=== PATIENT | female | born 1985 | race Caucasian/White ===

== ENCOUNTER → 2016-09-13 | Outpatient (REF) | payer MEDICARE, MEDICAID ==
[2016-09-13 12:03] LABS: BASO # 0.1 K/mm3 (0.0-0.2); BASO % 0.9 % (0.0-1.0); EOS # 0.6 K/mm3 (0.0-0.50); LYMPH % 26.1 % (24.0-44.0); MEAN CORPUSCULAR HGB CONC 31.9 g/dl (32.0-36.5); MEAN CORPUSCULAR VOLUME 90.9 fl (80.0-96.0); MONO # 0.6 K/mm3 (0.0-0.8); NEUTROPHILS # 6.4 K/mm3 (1.8-7.7); NEUTROPHILS % 59.7 % (36.0-66.0); RED CELL DISTRIBUTION WIDTH 13.3 % (11.5-14.5); WHITE BLOOD COUNT 10.8 K/mm3 (4.0-10.0)
[2016-09-13 12:22] LABS: ALBUMIN 3.9 GM/DL (3.2-5.2); ALBUMIN/GLOBULIN RATIO 1.18 (1.00-1.93); ALKALINE PHOSPHATASE 71 U/L (45-117); ALT/SGPT 19 U/L (12-78); ANION GAP 9 MEQ/L (8-16); AST/SGOT 11 U/L (15-37); BILIRUBIN,TOTAL 0.3 MG/DL (0.2-1.0); BLOOD UREA NITROGEN 9 MG/DL (7-18); CALCIUM LEVEL 9.2 MG/DL (8.5-10.1); CARBON DIOXIDE LEVEL 25 MEQ/L (21-32); CHLORIDE LEVEL 105 MEQ/L (98-107); CHOLESTEROL LEVEL 194 MG/DL (<200); CREATININE FOR GFR 0.68 MG/DL (0.55-1.02); GLOMERULAR FILTRATION RATE > 60.0 (>60); GLUCOSE, FASTING 108 MG/DL (70-105); POTASSIUM SERUM 4.6 MEQ/L (3.5-5.1); SODIUM LEVEL 139 MEQ/L (136-145); THYROXINE (T4) 9.2 UG/DL (4.5-12.0); TOTAL PROTEIN 7.2 GM/DL (6.4-8.2); TRIGLYCERIDES LEVEL 213 MG/DL (<150)
== END ==
LOC: M LABDRAW1 11:46
PROVIDERS: ATTEND Physician Assistant
DX: E03.9 Hypothyroidism, unspecified (principal); E55.9 Vitamin D deficiency, unspecified; M79.7 Fibromyalgia; E78.2 Mixed hyperlipidemia

== ENCOUNTER → 2016-11-07 | Outpatient (REF) | payer MEDICARE, MEDICAID, OTHER ==
[2016-11-07 12:13] LABS: ALBUMIN 3.8 GM/DL (3.2-5.2); ALBUMIN/GLOBULIN RATIO 1.12 (1.00-1.93); ALKALINE PHOSPHATASE 77 U/L (45-117); ALT/SGPT 20 U/L (12-78); ANION GAP 8 MEQ/L (8-16); AST/SGOT 9 U/L (15-37); BILIRUBIN,TOTAL 0.2 MG/DL (0.2-1.0); BLOOD UREA NITROGEN 15 MG/DL (7-18); CALCIUM LEVEL 9.5 MG/DL (8.5-10.1); CARBON DIOXIDE LEVEL 27 MEQ/L (21-32); CHLORIDE LEVEL 103 MEQ/L (98-107); CHOLESTEROL LEVEL 190 MG/DL (<200); CREATININE FOR GFR 0.63 MG/DL (0.55-1.02); GLOMERULAR FILTRATION RATE > 60.0 (>60); GLUCOSE, FASTING 93 MG/DL (70-105); POTASSIUM SERUM 4.6 MEQ/L (3.5-5.1); SODIUM LEVEL 138 MEQ/L (136-145); TOTAL PROTEIN 7.2 GM/DL (6.4-8.2); TRIGLYCERIDES LEVEL 194 MG/DL (<150)
[2016-11-07 12:33] LABS: BASO # 0.1 K/mm3 (0.0-0.2); BASO % 0.8 % (0.0-1.0); EOS # 0.6 K/mm3 (0.0-0.50); EOS % 5.3 % (0.0-3.0); LYMPH # 2.7 K/mm3 (1.5-4.5); LYMPH % 25.3 % (24.0-44.0); MEAN CORPUSCULAR HEMOGLOBIN 28.8 pg (27.0-33.0); MEAN CORPUSCULAR HGB CONC 31.7 g/dl (32.0-36.5); MONO # 0.7 K/mm3 (0.0-0.8); MONO % 6.4 % (0.0-5.0); NEUTROPHILS # 6.4 K/mm3 (1.8-7.7); NEUTROPHILS % 60.6 % (36.0-66.0); RED CELL DISTRIBUTION WIDTH 13.2 % (11.5-14.5); WHITE BLOOD COUNT 10.5 K/mm3 (4.0-10.0)
== END ==
LOC: M LABDRAW1 11:29
PROVIDERS: ATTEND Physician Assistant Medical
DX: E78.2 Mixed hyperlipidemia (principal); E03.9 Hypothyroidism, unspecified; E55.9 Vitamin D deficiency, unspecified; Z51.81 Encounter for therapeutic drug level monitoring; Z79.899 Other long term (current) drug therapy

== ENCOUNTER → 2016-11-07 | Outpatient (REF) | payer MEDICARE, MEDICAID, OTHER ==
[2016-11-07 12:15] LABS: BLOOD UREA NITROGEN 15 MG/DL (7-18); CREATININE FOR GFR 0.65 MG/DL (0.55-1.02); GLOMERULAR FILTRATION RATE > 60.0 (>60)
== END ==
LOC: M LABDRAW1 11:27
PROVIDERS: ATTEND Psychiatry & Neurology Psychiatry
DX: Z51.81 Encounter for therapeutic drug level monitoring (principal); Z79.899 Other long term (current) drug therapy

== ENCOUNTER → 2017-02-13 | Outpatient (REF) | payer MEDICARE, MEDICAID ==
[2017-02-13 12:22] LABS: ALBUMIN 3.7 GM/DL (3.2-5.2); ALBUMIN/GLOBULIN RATIO 1.09 (1.00-1.93); ALKALINE PHOSPHATASE 80 U/L (45-117); ALT/SGPT 20 U/L (12-78); ANION GAP 8 MEQ/L (8-16); AST/SGOT 13 U/L (15-37); BILIRUBIN,TOTAL 0.3 MG/DL (0.2-1.0); BLOOD UREA NITROGEN 13 MG/DL (7-18); CARBON DIOXIDE LEVEL 26 MEQ/L (21-32); CHLORIDE LEVEL 104 MEQ/L (98-107); CHOLESTEROL LEVEL 205 MG/DL (<200); CREATININE FOR GFR 0.56 MG/DL (0.55-1.02); GLOMERULAR FILTRATION RATE > 60.0 (>60); GLUCOSE, FASTING 84 MG/DL (70-105); POTASSIUM SERUM 4.4 MEQ/L (3.5-5.1); SODIUM LEVEL 138 MEQ/L (136-145); TOTAL PROTEIN 7.1 GM/DL (6.4-8.2); TRIGLYCERIDES LEVEL 199 MG/DL (<150)
== END ==
LOC: M LABDRAW1 10:15
PROVIDERS: ATTEND Physician Assistant Medical
DX: E78.2 Mixed hyperlipidemia (principal); E03.9 Hypothyroidism, unspecified; E55.9 Vitamin D deficiency, unspecified; Z51.81 Encounter for therapeutic drug level monitoring; Z79.899 Other long term (current) drug therapy

== ENCOUNTER → 2017-02-13 | Outpatient (REF) | payer MEDICARE, MEDICAID, OTHER ==
[2017-02-13 12:21] LABS: BLOOD UREA NITROGEN 13 MG/DL (7-18); CREATININE FOR GFR 0.59 MG/DL (0.55-1.02); GLOMERULAR FILTRATION RATE > 60.0 (>60)
[2017-02-13 12:25] LABS: LITHIUM LEVEL 0.79 MEQ/L (0.60-1.20)
== END ==
LOC: M LABDRAW1 10:19
PROVIDERS: ATTEND Psychiatry & Neurology Psychiatry
DX: Z51.81 Encounter for therapeutic drug level monitoring (principal); Z79.899 Other long term (current) drug therapy

== ENCOUNTER → 2017-06-19 | Outpatient (REF) | payer MEDICARE, MEDICAID, OTHER ==
[2017-06-19 12:05] LABS: BASO # 0.1 10^3/uL (0.0-0.2); BASO % 0.7 % (0.0-1.0); EOS # 0.6 10^3/uL (0.0-0.50); EOS % 5.1 % (0.0-3.0); IMMATURE GRANULOCYTE % 0.7 % (0-0); LYMPH # 3.1 10^3/uL (1.5-4.5); LYMPH % 28.1 % (24.0-44.0); MEAN CORPUSCULAR HEMOGLOBIN 29.3 pg (27.0-33.0); MEAN CORPUSCULAR HGB CONC 32.9 g/dl (32.0-36.5); MEAN CORPUSCULAR VOLUME 89.1 fl (80.0-96.0); MONO # 0.6 10^3/uL (0.0-0.8); MONO % 5.6 % (0.0-5.0); NEUTROPHILS # 6.6 10^3/uL (1.8-7.7); NEUTROPHILS % 59.8 % (36.0-66.0); PLATELET COUNT, AUTOMATED 449 10^3/uL (150-450); RED CELL DISTRIBUTION WIDTH 13.7 % (11.5-14.5); WHITE BLOOD COUNT 11.1 10^3/uL (4.0-10.0)
== END ==
LOC: M LABDRAW1 10:32
PROVIDERS: ATTEND Physician Assistant Medical
DX: E78.2 Mixed hyperlipidemia (principal); E55.9 Vitamin D deficiency, unspecified; E03.9 Hypothyroidism, unspecified

== ENCOUNTER 2017-07-26 15:23 | Inpatient (IN) | payer OTHER, MEDICAID ==
[~2017-07-26] VITALS: Ht 162.6 cm; Wt 113.6 kg
[2017-07-26] MEDS ORDERED: LYRI75CA PO (15:38)
[2017-07-26] MEDS ORDERED: LITH1TAB PO (15:38)
[2017-07-26] MEDS ORDERED: METH54TA PO (15:38)
[2017-07-26] MEDS ORDERED: FLUV100T2 PO (15:38)
[2017-07-26] MEDS ORDERED: BUSP10TA PO (15:38)
[2017-07-26] MEDS ORDERED: LEVO88TA3 PO (15:38)
[2017-07-26] MEDS ORDERED: PROAAER10 PO (15:38)
[2017-07-26] MEDS ORDERED: NS 1,000 ML IV ONE ×2 (15:45→19:30)
[2017-07-26] MEDS ORDERED: ADACEL/BOOSTRIX VACCINE (DIPHTH/PERTUSS/ACELL/TETANUS)0.5ML SYR (90715) IM ONE (15:45)
[2017-07-26] MEDS ORDERED: ACETAMINOPHEN 325 MG TAB PO ONE (15:45)
[2017-07-26] MEDS ORDERED: NS 500 ML IV ONE (16:30)
[2017-07-26 17:06] LABS: BASO # 0.1 10^3/uL (0.0-0.2); BASO % 0.4 % (0.0-1.0); EOS # 0.4 10^3/uL (0.0-0.50); EOS % 1.4 % (0.0-3.0); IMMATURE GRANULOCYTE % 0.4 % (0-0); LYMPH # 1.8 10^3/uL (1.5-4.5); LYMPH % 7.1 % (24.0-44.0); MEAN CORPUSCULAR HEMOGLOBIN 29.2 pg (27.0-33.0); MEAN CORPUSCULAR HGB CONC 34.1 g/dl (32.0-36.5); MEAN CORPUSCULAR VOLUME 85.6 fl (80.0-96.0); MONO # 1.3 10^3/uL (0.0-0.8); MONO % 5.3 % (0.0-5.0); NEUTROPHILS # 21.5 10^3/uL (1.8-7.7); NEUTROPHILS % 85.4 % (36.0-66.0); PLATELET COUNT, AUTOMATED 472 10^3/uL (150-450); RED CELL DISTRIBUTION WIDTH 13.2 % (11.5-14.5); WHITE BLOOD COUNT 25.2 10^3/uL (4.0-10.0)
[2017-07-26 17:20] LABS: CONTROL LINE HCG INT CTR LINE PRESENT
[2017-07-26 17:28] LABS: ALBUMIN 3.8 GM/DL (3.2-5.2); ALBUMIN/GLOBULIN RATIO 0.83 (1.00-1.93); ALKALINE PHOSPHATASE 96 U/L (45-117); ALT/SGPT 18 U/L (12-78); AMYLASE 33 U/L (25-115); ANION GAP 9 MEQ/L (8-16); AST/SGOT 7 U/L (7-37); BILIRUBIN,DIRECT 0.1 MG/DL (0.0-0.2); BILIRUBIN,TOTAL 0.7 MG/DL (0.2-1.0); BLOOD UREA NITROGEN 6 MG/DL (7-18); CALCIUM LEVEL 8.9 MG/DL (8.5-10.1); CARBON DIOXIDE LEVEL 23 MEQ/L (21-32); CHLORIDE LEVEL 103 MEQ/L (98-107); CREATININE FOR GFR 0.67 MG/DL (0.55-1.02); GLOMERULAR FILTRATION RATE > 60.0 (>60); GLUCOSE, FASTING 114 MG/DL (70-105); INR 1.01; POTASSIUM SERUM 3.5 MEQ/L (3.5-5.1); SODIUM LEVEL 135 MEQ/L (136-145); TOTAL PROTEIN 8.4 GM/DL (6.4-8.2)
[2017-07-26] MEDS ORDERED: ISOVUE-370 76% 100ML VIAL (Q9967) As Ordered ONE (17:48)
--- NOTE | 2017-07-26 18:20 | REPUSA ---
CT of the abdomen and pelvis with contrast Clinical statement: Pain. Technique: Multiple axial CT images were obtained from the base of the lungs through the floor of the pelvis utilizing 5 mm axial slices after administration of nonionic intravenous contrast. Coronal an d sagittal reconstructions were also obtained. No comparison is available. Findings: Chest: The visualized lung bases are clear. Abdomen: The liver, spleen, pancreas, kidneys, gallbladder, and adrenal glands are unremarkable. The aorta is within normal limits. There is no evidence of abdominal lymphadenopathy or ascites. Pelvis: The appendix is significantly enlarged and inflame measuring up to 22 mm. Several appendicoli ths are noted. Surrounding mesenteric inflammation and fluid is noted. There is no evidence of perfor ation. The remainder of the bowel is grossly unremarkable. The urinary bladder is within normal limit s. The other pelvic structures appear grossly intact. There is no evidence of pelvic lymphadenopathy or ascites. Bones: There are no suspicious osseous abnormalities seen. Impression: Severe acute appendicitis with surrounding inflammation and edema. No evidence of perfora tion or abscess. ER physician was notified of these findings at 6:15 PM on 07/26/2017.
[2017-07-26] MEDS ORDERED: LR 1,000 ML IV ONE (18:30)
[2017-07-26] MEDS ORDERED: CALC600T6 PO (18:46)
[2017-07-26] MEDS ORDERED: DRIS50002 PO (18:46)
[2017-07-26] MEDS ORDERED: VITMTA PO (18:46)
[2017-07-26] MEDS ORDERED: B COTAB3 PO (18:46)
[2017-07-26] MEDS ORDERED: PROB1TAB PO (18:46)
[2017-07-26] MEDS ORDERED: FISH100049 PO (18:46)
[2017-07-26] MEDS ORDERED: PIPERACILLIN/TAZOBACTAM SOD 3.375 GM in APPROPRIATE DILUENT 1 EA IV ONE (19:00)
[2017-07-26] MEDS ORDERED: MORPHINE 2 MG/ML 1ML SYRINGE IV ONE (19:15)
--- NOTE | 2017-07-26 19:48 | ECGEPIP ---
Stationary ECG Study 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
[2017-07-26] MEDS ORDERED: fentaNYL 250 MCG/5 ML INJECTION (J3010) As Ordered ONE (19:55)
[2017-07-26] MEDS ORDERED: ROCURONIUM BROMIDE 50 MG/5 ML VIAL As Ordered ONE (19:55)
[2017-07-26] MEDS ORDERED: MIDAZOLAM INJ 2 MG/2 ML VIAL (J2250) As Ordered ONE (19:55)
[2017-07-26] MEDS ORDERED: LIDOCAINE 2% INJ 100 MG/5 ML SDV (FOR ANES.) As Ordered ONE (19:55)
[2017-07-26] MEDS ORDERED: PROPOFOL 200 MG/20 ML VIAL As Ordered ONE (19:55)
[2017-07-26] MEDS ORDERED: LIDOCAINE 1% SDV INJ 30 ML VIAL As Ordered ONE (20:05)
[2017-07-26] MEDS ORDERED: BUPIVACAINE HCL 0.25% 30 ML VIAL As Ordered ONE (20:05)
--- NOTE | 2017-07-26 20:08 | HPEPDOC ---
General Surgery H&P Date of Admission Jul 26, 2017 Attending Physician: JADE ALCANTAR MD History and Physical CHIEF COMPLAINT: Abdominal pain HISTORY OF PRESENT ILLNESS: Patient is a 22-year-old female who presented herself to the emergency department with a three-day history of lower abdominal pain mainly centralize the right lower quadrant area. This is associated with nausea, anorexia. She denies any fevers or chills, diarrhea, vomiting. She denies any sick contacts. She denies any prior episodes of similar symptoms. She initially thought she was just having cramps from her menstruation but this persistent and has become steady and constant prompting her to go to the emergency room. ALLERGIES: Please see below. HOME MEDICATIONS: Please see below. PAST MEDICAL HISTORY: 1. Obsessive-compulsive disorder. 2. And bipolar disorder 3. Attention deficit hyperactivity disorder 4. Hypothyroidism. 5. Reactive airway- seasonal asthma PAST SURGICAL HISTORY: 1. Tubal ligation PERSONAL/SOCIAL HISTORY: Denies smoking, alcohol use, or recreational drug use. REVIEW OF SYSTEMS: GENERAL: Denies chills, fatigue, fever, weight gain and weight loss. HEENT: Denies blurred vision and double vision. Denies ear symptoms. Denies hoarseness. NECK: Denies any neck pain. CARDIOVASCULAR: Denies chest pain and palpitations. MUSCULOSKELETAL: Denies arthralgias, back pain and thrombophlebitis. SKIN: Denies rash. NEUROLOGIC: Denies headache, stroke and transient ischemic attack. PSYCHIATRIC: Extensive psych history as above. ENDOCRINE: On thyroid supplementation. HEMATOLOGY/ONCOLOGY: Denies any bleeding or clotting disorder. HEART: Denies any chest pains, palpitations, paroxysmal dyspnea, orthopnea. PULMONARY: Denies chronic cough, dyspnea and wheezing. GASTROINTESTINAL: Denies rectal bleeding, family history of colon cancer, constipation, diarrhea, dysphagia, heartburn and jaundice. GENITOURINARY: Denies dysuria, frequency, hematuria and nocturia. ENDOCRINE: Denies polydipsia, polyphagia, polyuria, heat or cold intolerance. INFECTIOUS: Denies any recent upper respiratory tract infection, UTI, need for use of antibiotics. NUTRITION: Reports anorexia. PHYSICAL EXAMINATION: VITAL SIGNS: Please see below. GENERAL APPEARANCE: Patient seen at bedside, appears comfortable. Awake, alert, oriented. HEENT: Normocephalic, atraumatic. [place] palpebral conjunctivae. Anicteric sclerae. Lips moist. CHEST: No chest wall abnormalities. Normal respiratory motion/effort. NECK: Supple. No thyromegaly. No lymphadenopathies. LUNGS: Lung sounds are clear to auscultation bilaterally. No wheezing appreciated. HEART: No chest wall abnormalities. Heart rate and rhythm are regular with no murmurs. ABDOMEN: Abdomen is obese, soft, round, moderately distended, tympanitic to percussion. Nontender and palpation at the right lower quadrant area extending from the suprapubic to the right lower quadrant with mild guarding SKIN: Warm, moist. EXTREMITIES: Extremities have no deformities. No edema identified. NEUROLOGICAL: Awake, alert, oriented ANCILLARIES: . LABORATORY DATA: Please see below. MICROBIOLOGY: Please see below. IMAGING: CT scan abdomen and pelvis The appendix is significantly enlarged and inflame measuring up to 22 mm. Several appendicoliths are noted. Surrounding mesenteric inflammation and fluid is noted. There is no evidence of perforation. The remainder of the bowel is grossly unremarkable. The urinary bladder is within normal limits. The other pelvic structures appear grossly intact. There is no evidence of pelvic lymphadenopathy or ascites IMPRESSION AND PLAN: Acute appendicitis with localized peritonitis Patient has three-day history of abdominal pain presenting with a white cell count of 25,000. I suspect this either necrotic or perforated at this point. Despite this she is afebrile and not showing signs of severe sepsis. The area of tenderness is limited to the right side of her abdomen. In the CT scan, there is no severe phlegmon or abscess formation. I still think she would benefit from appendectomy. I discussed with her the details of the procedure, its risks and benefits including risks for bleeding, infection, abscess formation, injury to nearby structures including bowel injury that may need resection and repair. She may need a drain if there is extensive inflammation or fluid, purulent collection. I suspect she most likely will stay for a few days for IV antibiotics especially if it turns out that this is necrotic and perforated. Consent was obtained from the patient. Patient has been given Zosyn 3.375 g IV started in the emergency room. Vital Signs Vital Signs Date Time Temp Pulse Resp B/P (MAP) Pulse Ox O2 Delivery O2 Flow Rate FiO2 07/26/17 19:36 98.8 95 20 128/66 (86) 96 Room Air I&Os I&O- Last 24 Hours up to 6 AM 07/27/17 06:00 Intake Total 30 ml Balance 30 ml Laboratory Data Labs 24H Laboratory Tests 2 07/26/17 16:51: Immature Granulocyte % (Auto) 0.4H, White Blood Count 25.2H, Red Blood Count 4.52, Hemoglobin 13.2, Hematocrit 38.7, Mean Corpuscular Volume 85.6, Mean Corpuscular Hemoglobin 29.2, Mean Corpuscular Hemoglobin Concent 34.1, Red Cell Distribution Width 13.2, Platelet Count 472H, Neutrophils (%) (Auto) 85.4H, Lymphocytes (%) (Auto) 7.1L, Monocytes (%) (Auto) 5.3H, Eosinophils (%) (Auto) 1.4, Basophils (%) (Auto) 0.4, Neutrophils # (Auto) 21.5H, Lymphocytes # (Auto) 1.8, Monocytes # (Auto) 1.3H, Eosinophils # (Auto) 0.4, Basophils # (Auto) 0.1, Immature Granulocyte # (Auto) 0.1H, Nucleated Red Blood Cells % (auto) 0.0, Prothrombin Time 13.4, Prothromb Time International Ratio 1.01, Activated Partial Thromboplast Time 29.7, Urine Appearance HAZY, Urine Color YELLOW, Urine pH 6.0, Urine Specific [place] 1.005, Urine Protein 2+H, Urine Glucose (UA ) NEGATIVE, Urine Ketones NEGATIVE, Urine Urobilinogen 0.2, Urine Bilirubin NEGATIVE, Urine Leukocyte Esterase NEGATIVE, Urine Blood 2+H, Urine Nitrite NEGATIVE, Urine WBC (Auto) 4H, Urine RBC (Auto) 2, Urine Hyaline Casts (Auto) 0 , Urine Bacteria (Auto) 1+H, Urine Squamous Epithelial Cells 1, Urine Sperm ( Auto) , Anion Gap 9, Glomerular Filtration Rate > 60.0, Lactic Acid Level 1.2, Calcium Level 8.9, Aspartate Amino Transf (AST/SGOT) 7, Alanine Aminotransferase (ALT/SGPT) 18, Alkaline Phosphatase 96, Total Bilirubin 0.7, Direct Bilirubin 0.1, Total Protein 8.4H, Albumin 3.8, Albumin/Globulin Ratio 0.83L, Amylase Level 33, Lipase 62L, Human Chorionic Gonadotropin, Qual NEGATIVE CBC/BMP Laboratory Tests 07/26/17 16:51 Red Blood Count 4.52, Mean Corpuscular Volume 85.6, Mean Corpuscular Hemoglobin 29.2, Mean Corpuscular Hemoglobin Concent 34.1, Red Cell Distribution Width 13.2 , Neutrophils (%) (Auto) 85.4 H, Lymphocytes (%) (Auto) 7.1 L, Monocytes (%) ( Auto) 5.3 H, Eosinophils (%) (Auto) 1.4, Basophils (%) (Auto) 0.4, Neutrophils # (Auto) 21.5 H, Lymphocytes # (Auto) 1.8, Monocytes # (Auto) 1.3 H, Eosinophils # (Auto) 0.4, Basophils # (Auto) 0.1 Microbiology Microbiology 07/26/17 Blood Culture, Received Pending Home Medications Scheduled (Probiotic) 1 Tab Tab, 1 TAB PO DAILY, (Reported) (B Complex) 1 Tab Tab, 1 TAB PO DAILY, (Reported) Buspirone HCl (Buspirone HCl) 10 Mg Tab, 10 MG PO BID, (Reported) Calcium/Vitamin D (Calcium/Vitamin D 600-400 mg-Unit) 1 Tab Tab, 1 TAB PO BID, ( Reported) Fish Oil (Fish Oil 1000 mg) 1 Cap Cap, 1 CAP PO QHS, (Reported) Fluvoxamine Maleate (Fluvoxamine Maleate) 100 Mg Tab, 250 MG PO QHS, (Reported) Levothyroxine Sodium (Synthroid) 88 Mcg Tab, 88 MCG PO DAILY, (Reported) Seffner Carbonate (Seffner Carbonate ER) 300 Mg Tabcr, 600 TAB PO BID, (Reported ) Methylphenidate HCl (Methylphenidate HCl ER) 54 Mg Tab, 54 MG PO DAILY, ( Reported) Multivitamins *[facility] STOCKED* (Thera M Plus *[facility] STOCKED*) 1 Tab Tab, 1 TAB PO DAILY, (Reported) Pregabalin (Lyrica) 75 Mg Cap, 75 MG PO BID, (Reported) Vitamin D (Drisdol) 50,000 Unit Cap, 50,000 UNIT PO ASDIRECTED, (Reported) WEDNESDAYS Scheduled PRN Albuterol Sulfate (Proair Hfa) 108 Mcg/Act Aer, 2 PUFFS PO QID PRN for SHORTNESS OF BREATH, (Reported) Allergies Coded Allergies: Latex (Verified Adverse Reaction, Unknown, 07/26/17) JADE ALCANTAR MD Jul 26, 2017 20:08
--- NOTE | 2017-07-26 21:53 | POST-OPPD ---
Date of Procedure: Jul 26, 2017 Postoperative Note PREOPERATIVE DIAGNOSIS: acute appendicitis POSTOPERATIVE DIAGNOSIS: acute appendicitis with perforation FINDINGS: inflamed appendix, distended to 2 cms at the middle, appendicolith at the base with necrosis of the antimesenteric portion of the appendix with perforation, no abscess, light tinge of greenish fluid in pelvis and right gutter PROCEDURE: Laparoscopic Appendectomy SURGEON: Deniz Pillai MD SWING RIDE OPERATOR: ANESTHESIA: general anesthesia SPECIMENS: appendix ESTIMATED BLOOD LOSS: 20 mLs DRAINS: 10 flat MARIANGEL drain at the right gutter COMPLICATIONS: none POSTOPERATIVE CONDITION: stable JADE PILLAI MD Jul 26, 2017 21:54
[2017-07-26] MEDS ORDERED: NORCO, ANEXSIA 5/325MG TABLET (HYDROcodone/ACETAMINOPHEN) PO PRN ×3 (22:00→22:30)
[2017-07-26] MEDS ORDERED: ALBUTEROL 90 MCG/ACT 8GM HFA INHALER INH PRN (22:00)
[2017-07-26] MEDS ORDERED: MORPHINE 4 MG/ML 1ML SYRINGE IV PRN (22:00)
[2017-07-26] MEDS ORDERED: ONDANSETRON 4MG/2ML VIAL (J2405) IV PRN ×2 (22:00→22:30)
[2017-07-26] MEDS ORDERED: ACETAMINOPHEN TAB 650MG DOSE (2X325MG) PO PRN (22:00)
[2017-07-26] MEDS ORDERED: fentaNYL 100 MCG/2 ML INJECTION (J3010) IV PRN (22:30)
[2017-07-26] MEDS ORDERED: LR 1,000 ML IV SCH (22:30)
--- NOTE | 2017-07-26 22:30 | ROOPDOC ---
[facility] Report Of Operation Report of Operation DATE OF PROCEDURE: 07/26/17 PREOPERATIVE DIAGNOSIS: acute appendicitis POSTOPERATIVE DIAGNOSIS: acute appendicitis with perforation FINDINGS: inflamed appendix, distended to 2 cms at the middle, appendicolith at the base with necrosis of the antimesenteric portion of the appendix with perforation, no abscess, light tinge of greenish fluid in pelvis and right gutter PROCEDURE: Laparoscopic Appendectomy SURGEON: Deniz Pillai MD TRAFFIC LAW ATTORNEY: ANESTHESIA: general anesthesia SPECIMENS: appendix ESTIMATED BLOOD LOSS: 20 mLs DRAINS: 10 flat MARIANGEL drain at the right gutter COMPLICATIONS: none POSTOPERATIVE CONDITION: stable DESCRIPTION OF PROCEDURE: Patient has been given a dose of Zosyn perioperatively.Patient was brought to the operating room, placed supine on the table. Sequential compression device placed for DVT prophylaxis. General endotracheal anesthesia started. The abdomen prepped and draped in usual sterile fashion. After a surgical timeout, we began our surgery Entry into the abdomen done through an incision above the umbilicus. Veress needle inserted on a controlled fashion. Intra-abdominal placement confirmed with saline drop technique. CO2 insufflation started to a pressure of 15 mmHg. Using the same incision a 12 mm port was placed under direct vision of laparoscope. Insertion site was inspected for injury and none was found. He was placed on a Trendelenburg position the right side tilted to about 30 to allow for better visualization of the appendix. 2 working ports were placed at the suprapubic area and left lower quadrant area under direct vision. Operative findings: There was a general area of inflammation at the latral side of the cecum covered with fibrin. The appendix is noted inflamed , dilated up to 2 cm at the midpoint and adhered to the side of the cecum The appendix was located, the adhered bowels and mesentery was widely dissected away from the appendix freeing up the appendix from the inflammatory adhesions using [place] instrument and suction irrigation. The Surrounding bowels retracted away from the appendix. This was grasped to pull the base of the appendix into view. The mesoappendix was divided using Harmonic scalpel down to the base. A Vicryl Endoloop was placed to ligate the appendix at its base then divided with a Harmonic Scalpel the stump cauterized. Stump appears healthy. Appendix was then delivered into an Endo Catch bag. After re-insufflation the surgical site was inspected for hemostasis, the visualized fluid collections irrigated and suctioned off until clear return. Surrounding areas of the abdomen and inspected for fluid collections or signs of injury. A 10 flat MARIANGEL drain was left in place close to the abdomen initial stump for monitoring and for drainage of fluid irrigation. The abdomen was deflated. All ports removed. The umbilical fascial defect repaired with 0 Vicryl in a mattress fashion. All skin incisions closed with 4-0 Monocryl in a subcuticular fashion. Steri-Strips and gauze dressing used for wound coverage. Patient was promptly awake and extubated and brought to recovery room stable. All counts of sponges and instruments verified to be correct. JADE PILLAI MD Jul 26, 2017 21:55
[2017-07-26 22:40] VITALS: BP 147/47
[2017-07-26 22:50] VITALS: BP 131/64
[2017-07-26] MEDS: LR 1,000 ML IV SCH (23:22)
[2017-07-26 23:25] VITALS: BP 132/72
[2017-07-27] VITALS (8 sets, daily range): BP systolic 112–140; BP diastolic 58–77
[2017-07-27] MEDS: fluvoxaMINE MALEATE 50 MG TAB PO SCH ×2 (00:08→20:10)
[2017-07-27] MEDS: PIPERACILLIN/TAZOBACTAM SOD 3.375 GM in APPROPRIATE DILUENT 1 EA IV SCH ×5 (00:08→23:47)
[2017-07-27] MEDS: LITHIUM CARBONATE 300 MG **CR** TAB PO SCH ×3 (00:08→20:10)
[2017-07-27] MEDS: OMEGA-3 1050MG CAPSULE PO SCH ×2 (00:11→20:10)
[2017-07-27] MEDS: PREGABALIN 75 MG CAP(LYRICA) PO SCH ×3 (00:11→20:09)
[2017-07-27] MEDS: CALCIUM/VITAMIN D 500 MG TAB PO SCH ×3 (00:11→20:10)
[2017-07-27] MEDS: busPIRone 10 MG TAB PO SCH ×3 (00:11→20:10)
[2017-07-27] MEDS: LEVOTHYROXINE 88MCG TABLET (0.088 MG) PO SCH (05:49)
[2017-07-27] MEDS: LR 1,000 ML IV SCH ×3 (05:54→23:25)
[2017-07-27] MEDS: KETOROLAC 30 MG/ML VIAL (J1885) IV PRN ×3 (08:54→23:48)
[2017-07-27] MEDS: ENOXAPARIN 40 MG/0.4 ML SYRINGE (J1650) SC SCH (08:54)
[2017-07-27] MEDS: LACTOBACILLUS ACIDOPHILUS CAP (BACID) PO SCH (08:55)
[2017-07-27] MEDS: SENOKOT S TAB PO SCH ×2 (08:55→20:09)
[2017-07-27] MEDS: MULTIVITAMINS/MINERALS THERAP 1 TAB PO SCH (08:55)
[2017-07-28] VITALS: BP 125/77
[2017-07-28] MEDS: LEVOTHYROXINE 88MCG TABLET (0.088 MG) PO SCH (05:37)
[2017-07-28] MEDS: PIPERACILLIN/TAZOBACTAM SOD 3.375 GM in APPROPRIATE DILUENT 1 EA IV SCH ×2 (05:37→12:00)
[2017-07-28 06:00] VITALS: BP 136/74
[2017-07-28] MEDS: MULTIVITAMINS/MINERALS THERAP 1 TAB PO SCH (08:33)
[2017-07-28] MEDS: PREGABALIN 75 MG CAP(LYRICA) PO SCH (08:33)
[2017-07-28] MEDS: LACTOBACILLUS ACIDOPHILUS CAP (BACID) PO SCH (08:33)
[2017-07-28] MEDS: SENOKOT S TAB PO SCH (08:33)
[2017-07-28] MEDS: LITHIUM CARBONATE 300 MG **CR** TAB PO SCH (08:33)
[2017-07-28] MEDS: busPIRone 10 MG TAB PO SCH (08:33)
[2017-07-28] MEDS: CALCIUM/VITAMIN D 500 MG TAB PO SCH (08:33)
[2017-07-28] MEDS: ENOXAPARIN 40 MG/0.4 ML SYRINGE (J1650) SC SCH (08:37)
[2017-07-28] MEDS ORDERED: INFLUENZA QUADRIVALENT PF VACCINE 0.5ML SYRINGE (90686) IM ONE (09:00)
[2017-07-28 09:53] LABS: BASO # 0.1 10^3/uL (0.0-0.2); BASO % 0.2 % (0.0-1.0); EOS # 0.8 10^3/uL (0.0-0.50); EOS % 3.9 % (0.0-3.0); IMMATURE GRANULOCYTE % 0.5 % (0-0); LYMPH # 1.2 10^3/uL (1.5-4.5); LYMPH % 5.6 % (24.0-44.0); MEAN CORPUSCULAR HEMOGLOBIN 29.3 pg (27.0-33.0); MEAN CORPUSCULAR HGB CONC 33.1 g/dl (32.0-36.5); MEAN CORPUSCULAR VOLUME 88.4 fl (80.0-96.0); MONO # 0.9 10^3/uL (0.0-0.8); MONO % 4.4 % (0.0-5.0); NEUTROPHILS # 17.5 10^3/uL (1.8-7.7); NEUTROPHILS % 85.4 % (36.0-66.0); PLATELET COUNT, AUTOMATED 400 10^3/uL (150-450); RED CELL DISTRIBUTION WIDTH 13.3 % (11.5-14.5); WHITE BLOOD COUNT 20.5 10^3/uL (4.0-10.0)
[2017-07-28 10:18] LABS: ANION GAP 8 MEQ/L (8-16); BLOOD UREA NITROGEN 4 MG/DL (7-18); CALCIUM LEVEL 8.6 MG/DL (8.5-10.1); CARBON DIOXIDE LEVEL 25 MEQ/L (21-32); CHLORIDE LEVEL 104 MEQ/L (98-107); GLOMERULAR FILTRATION RATE > 60.0 (>60); GLUCOSE, FASTING 176 MG/DL (70-105); POTASSIUM SERUM 3.6 MEQ/L (3.5-5.1); SODIUM LEVEL 137 MEQ/L (136-145)
[2017-07-28] MEDS: LR 1,000 ML IV SCH (10:20)
[2017-07-28] MEDS ORDERED: AMOX875T2 PO (10:37)
[2017-07-28] MEDS ORDERED: NORCOTAB PO (10:37)
[2017-07-28] MEDS ORDERED: METR1TAB66 PO (10:46)
[2017-07-30] MEDS ORDERED: VITAMIN D 50,000 UNITS CAPSULE (ERGOCALCIFEROL 1.25MG) PO SCH (09:00)
== END 2017-07-28 13:11 | disposition home or self-care (01) | DRG 225 ==
LOC: M ED 15:23 → EDBD 15:23 → M OR 19:50 → M MSPAV 22:31
PROVIDERS: ADMIT Surgery; ATTEND Surgery
PROC: 0DTJ4ZZ Resection of Appendix, Percutaneous Endoscopic Approach (ICD-10-PCS; principal; 2017-07-26 19:41)
DX: K35.3 Acute appendicitis with localized peritonitis (principal); E03.9 Hypothyroidism, unspecified; Z98.51 Tubal ligation status; F31.9 Bipolar disorder, unspecified; F42.9 Obsessive-compulsive disorder, unspecified; F90.8 Attention-deficit hyperactivity disorder, other type; Z79.899 Other long term (current) drug therapy; Z91.040 Latex allergy status

== ENCOUNTER → 2017-10-27 | Outpatient (CLI) | payer OTHER, MEDICAID, MEDICARE ==
[2017-10-27 06:33] LABS: HEMATOCRIT 40.8 % (36.0-47.0); HEMOGLOBIN 13.3 g/dl (12.0-16.0); MEAN CORPUSCULAR HEMOGLOBIN 28.9 pg (27.0-33.0); MEAN CORPUSCULAR HGB CONC 32.6 g/dl (32.0-36.5); MEAN CORPUSCULAR VOLUME 88.7 fl (80.0-96.0); PLATELET COUNT, AUTOMATED 468 10^3/uL (150-450); RED CELL DISTRIBUTION WIDTH 13.5 % (11.5-14.5); WHITE BLOOD COUNT 14.6 10^3/uL (4.0-10.0)
[2017-10-27 06:50] LABS: ESTIMATED AVERAGE GLUCOSE 94 MG/DL (60-110); HEMOGLOBIN A1c 4.9 %
[2017-10-27 07:02] LABS: ALBUMIN/GLOBULIN RATIO 1.05 (1.00-1.93); ALKALINE PHOSPHATASE 78 U/L (45-117); ALT/SGPT 29 U/L (12-78); ANION GAP 10 MEQ/L (8-16); AST/SGOT 12 U/L (7-37); BILIRUBIN,TOTAL 0.1 MG/DL (0.2-1.0); BLOOD UREA NITROGEN 22 MG/DL (7-18); CALCIUM LEVEL 9.4 MG/DL (8.5-10.1); CARBON DIOXIDE LEVEL 23 MEQ/L (21-32); CHLORIDE LEVEL 105 MEQ/L (98-107); CHOLESTEROL LEVEL 222 MG/DL (<200); CHOLESTEROL RISK RATIO 5.692 (<5); CREATININE FOR GFR 0.61 MG/DL (0.55-1.30); GLOMERULAR FILTRATION RATE > 60.0 (>60); GLUCOSE, FASTING 114 MG/DL (70-100); HDL CHOLESTEROL 39 MG/DL (>40); LDL CHOLESTEROL 139.2 MG/DL (<100); NON-HDL-C 183 MG/DL; POTASSIUM SERUM 4.3 MEQ/L (3.5-5.1); SODIUM LEVEL 138 MEQ/L (136-145); TOTAL PROTEIN 7.8 GM/DL (6.4-8.2); TRIGLYCERIDES LEVEL 219 MG/DL (<150)
== END ==
LOC: M LAB 06:03
DX: R53.83 Other fatigue (principal); E03.9 Hypothyroidism, unspecified
CPT/HCPCS: 71046

== ENCOUNTER → 2018-01-30 | Outpatient (CLI) | payer OTHER, MEDICAID, MEDICARE | LOC: M WUC 09:47 | DX: M79.662 Pain in left lower leg (principal) | CPT/HCPCS: 73590 ==

== ENCOUNTER → 2018-03-19 | Outpatient (REF) | payer MEDICARE, MEDICAID ==
[2018-03-21 14:10] LABS: HPV HYBRID CAPTURE II Negative (Negative)
== END ==
LOC: M SFHCWAGY 10:30
DX: Z12.4 Encounter for screening for malignant neoplasm of cervix (principal)
CPT/HCPCS: G0123

== ENCOUNTER → 2018-07-23 | Outpatient (CLI) | payer MEDICARE | LOC: M WHC 06:55 | DX: Z12.31 Encounter for screening mammogram for malignant neoplasm of breast (principal); Z80.3 Family history of malignant neoplasm of breast; Z13.79 Encounter for other screening for genetic and chromosomal anomalies | CPT/HCPCS: 77067 ==

== ENCOUNTER → 2018-07-23 | Outpatient (CLI) | payer MEDICARE, MEDICAID ==
[~2018-07-23] MED LIST: AMOX875T2 PO; B COTAB3 PO; BENA25CA4 PO; BUSP10TA PO; CALC600T6 PO; DRIS50003 PO; FISH100049 PO; FLUV100T2 PO; KETO2SH; LEVO88TA3 PO; LITH1TAB PO; LYRI75CA PO; METH54TA PO; METR1TAB66 PO; NORCOTAB PO; PRED10TA2 PO; PROAAER10 PO; PROB1TAB PO; VITMTA PO
--- NOTE | 2018-07-27 16:22 | SLEEPCENT ---
DATE OF STUDY: 07/23/2018 ORDERED BY: MEGAN Wetzel Nocturnal polysomnography was performed for evaluation of sleep physiology in this patient with a history of excessive somnolence and nonrestorative sleep and morning headaches who has a history of obesity and prior diagnosis of mild obstructive sleep apnea syndrome. 7 hours and 56 minutes of data were reviewed. There were 403 minutes of sleep identified. Sleep latency was normal at 10 minutes. Rapid eye movement (REM) latency was quite prolonged at 369 minutes. Sleep architecture showed poor progression with periods of wake around midnight resulting in a reduced sleep efficiency of 86.3%. The electrocardiogram showed sinus rhythm with an average heart rate of 62 beats per minute. EEG showed fairly normal waveforms for awake and sleep stages. There were 40 respiratory events identified of 10 seconds in duration or greater for an apnea-hypopnea index of 5.90. The events were primarily obstructive, not exclusive to sleep stage, more frequent in the supine posture. Snoring was noted over the entire study. Respiratory related arousals occurred 5.1 times per hour. There was only 1 oxygen desaturations below 90%. With some limb activity 1 train of 30 events early in the study limb movement arousal index was borderline at 7.3 IMPRESSION: Mild positional obstructive sleep apnea syndrome (G47.33). Apnea-hypopnea index of 5.9. RECOMMENDATIONS: As the patient's obstructive respiratory events were mostly associated with supine posture, sleep position retraining for avoidance of the supine posture may be sufficient. However, in the persistence of snoring over the course of study should the patient's symptoms persist, referral back to the sleep disorder center for pressure therapy could be considered.
== END ==
LOC: M SLEEP 19:36
PROVIDERS: ATTEND Nurse Practitioner Family
DX: G47.33 Obstructive sleep apnea (adult) (pediatric) (principal); Z12.31 Encounter for screening mammogram for malignant neoplasm of breast; Z80.3 Family history of malignant neoplasm of breast; Z13.79 Encounter for other screening for genetic and chromosomal anomalies

== ENCOUNTER 2018-08-07 11:45 | Emergency (ER) | payer MEDICARE, MEDICAID ==
[~2018-08-07] VITALS: Ht 162.6 cm; Wt 117.3 kg
[~2018-08-07 11:45] MED LIST changes: -BENA25CA4 PO; -KETO2SH; -PRED10TA2 PO
[2018-08-07] MEDS ORDERED: KETO2SH (12:52)
[2018-08-07] MEDS ORDERED: PRED10TA2 PO (14:09)
[2018-08-07] MEDS ORDERED: BENA25CA4 PO (14:09)
[2018-08-07 14:19] VITALS: BP 161/87
== END 2018-08-07 14:20 | disposition home or self-care (01) ==
LOC: M ED 11:45
DX: R22.0 Localized swelling, mass and lump, head (principal); L29.9 Pruritus, unspecified; T78.49XA Other allergy, initial encounter; X58.XXXA Exposure to other specified factors, initial encounter; Y92.89 Other specified places as the place of occurrence of the external cause; K58.9 Irritable bowel syndrome, unspecified; M79.7 Fibromyalgia; Z91.040 Latex allergy status; Z79.899 Other long term (current) drug therapy; Z79.890 Hormone replacement therapy

== ENCOUNTER → 2018-08-27 | Outpatient (CLI) | payer MEDICARE, MEDICAID ==
[~2018-08-27] MED LIST changes: +BENA25CA4 PO; +KETO2SH; +METR-201 PO; -METR1TAB66 PO; +PRED10TA2 PO
--- NOTE | 2018-09-01 16:03 | SLEEPCENT ---
DATE OF PROCEDURE: 08/27/2018 ORDERED BY: MEGAN Wetzel Nocturnal polysomnography was performed for the titration of pressure therapy in this patient with obstructive sleep apnea syndrome. Apnea-hypopnea index of 5.9. For testing the patient was fit with a ResMed AirFit F20 full face mask of small size; 4 cm of water pressure were initially applied to the circuit and the lights were extinguished. 7 hours and 47 minutes of data were reviewed. There were 419 minutes of sleep identified. Sleep latency was normal at 6 minutes. Rapid eye movement (REM) latency was mildly delayed at 125 minutes. Sleep architecture was good with evidence of REM rebound. Overall sleep efficiency 92.5%. The patient's electrocardiogram showed sinus rhythm with an average heart rate of 66 beats per minute. EEG showed normal waveforms for awake and sleep. Respiratory events were best palliated with CPAP at a pressure of +9. Remaining measures of sleep physiology were normal. IMPRESSION: Obstructive sleep apnea syndrome (G47.33). RECOMMENDATIONS: Nightly use of pressure therapy 9 cm of water.
== END ==
LOC: M SLEEP 19:31
PROVIDERS: ATTEND Nurse Practitioner Family
DX: G47.33 Obstructive sleep apnea (adult) (pediatric) (principal)

== ENCOUNTER → 2018-10-02 | Outpatient (CLI) | payer MEDICARE, MEDICAID ==
[2018-10-02 09:49] LABS: BLOOD UREA NITROGEN 16 MG/DL (7-18); CREATININE FOR GFR 0.63 MG/DL (0.55-1.30); GLOMERULAR FILTRATION RATE > 60.0 (>60); LITHIUM LEVEL 0.71 MEQ/L (0.60-1.20)
== END ==
LOC: M LAB 08:00
PROVIDERS: ATTEND Psychiatry & Neurology Psychiatry
DX: Z51.81 Encounter for therapeutic drug level monitoring (principal); Z79.899 Other long term (current) drug therapy

== ENCOUNTER → 2018-10-02 | Outpatient (CLI) | payer MEDICARE, MEDICAID ==
[2018-10-02 09:51] LABS: ALBUMIN 3.8 GM/DL (3.2-5.2); ALT/SGPT 23 U/L (12-78); BILIRUBIN,TOTAL 0.2 MG/DL (0.2-1.0); BLOOD UREA NITROGEN 15 MG/DL (7-18); CALCIUM LEVEL 9.4 MG/DL (8.5-10.1); CARBON DIOXIDE LEVEL 27 MEQ/L (21-32); CHLORIDE LEVEL 105 MEQ/L (98-107); CHOLESTEROL LEVEL 203 MG/DL (<200); CHOLESTEROL RISK RATIO 4.613 (<5); CREATININE FOR GFR 0.59 MG/DL (0.55-1.30); FREE T4 0.95 NG/DL (0.76-1.46); GLOMERULAR FILTRATION RATE > 60.0 (>60); GLUCOSE, FASTING 95 MG/DL (70-100); HDL CHOLESTEROL 44 MG/DL (>40); LDL CHOLESTEROL 129 MG/DL (<100); NON-HDL-C 159 MG/DL; POTASSIUM SERUM 4.6 MEQ/L (3.5-5.1); SODIUM LEVEL 137 MEQ/L (136-145); TOTAL PROTEIN 7.4 GM/DL (6.4-8.2); TRIGLYCERIDES LEVEL 151 MG/DL (<150)
[2018-10-02 09:52] LABS: BASO # 0.1 10^3/uL (0.0-0.2); BASO % 0.7 % (0.0-1.0); EOS # 0.7 10^3/uL (0.0-0.50); EOS % 5.8 % (0.0-3.0); HEMATOCRIT 39.5 % (36.0-47.0); HEMOGLOBIN 12.7 g/dl (12.0-15.5); LYMPH # 3.6 10^3/uL (1.5-4.5); MEAN CORPUSCULAR HEMOGLOBIN 29.3 pg (27.0-33.0); MEAN CORPUSCULAR HGB CONC 32.2 g/dl (32.0-36.5); MONO # 0.7 10^3/uL (0.0-0.8); MONO % 6.1 % (0.0-5.0); NEUTROPHILS # 6.2 10^3/uL (1.8-7.7); NEUTROPHILS % 54.6 % (36.0-66.0); PLATELET COUNT, AUTOMATED 452 10^3/uL (150-450); RED BLOOD COUNT 4.34 10^6/uL (4.00-5.40); WHITE BLOOD COUNT 11.4 10^3/uL (4.0-10.0)
[2018-10-02 19:51] LABS: TOTAL 25(OH) VITAMIN D 31.8 NG/ML (30.0-100.0)
== END ==
LOC: M LAB 07:51
PROVIDERS: ATTEND Physician Assistant
DX: E03.9 Hypothyroidism, unspecified (principal); E55.9 Vitamin D deficiency, unspecified; F31.9 Bipolar disorder, unspecified; Z51.81 Encounter for therapeutic drug level monitoring; Z79.899 Other long term (current) drug therapy

== ENCOUNTER → 2019-01-11 | Outpatient (CLI) | payer MEDICARE, MEDICAID ==
[~2019-01-11] MED LIST changes: +HYDR-3715 PO; -KETO2SH; +KETO2SHA9; -METR-201 PO; +METR-265 PO; -NORCOTAB PO
[2019-01-11 09:56] LABS: FREE T4 1.01 NG/DL (0.76-1.46); THYROID STIMULATING HORMONE 1.91 uIU/ML (0.358-3.740)
== END ==
LOC: M LAB 08:30
PROVIDERS: ATTEND Physician Assistant
DX: E03.9 Hypothyroidism, unspecified (principal)

== ENCOUNTER → 2019-01-25 | Outpatient (CLI) | payer MEDICARE, MEDICAID ==
[~2019-01-25] MED LIST changes: +PROHANCE 279.3MG/ML 15ML VIAL (A9576) As Ordered ONE; +PROHANCE 279.3MG/ML 5ML VIAL (A9576) As Ordered ONE
--- NOTE | 2019-01-25 18:44 | REP ---
MRI BILATERAL BREASTS WITHOUT CONTRAST: MRI bilateral breasts were performed without the use of intravenous contrast. The patient became claustrophobic and could not continue the exam after the precontrast images and therefore no post contrast imaging is obtained. Patient has elevated lifetime risk of breast cancer with Tyrer-Cuzick score of 24.6%. Correlation made with prior mammogram 07/23/2018. Today's sequences include axial, coronal, and sagittal images. Mild fibroglandular tissue is seen bilaterally. In the left breast two oval hyperintense nodules are seen centrally, one more medially measuring about 8 mm in diameter and another more superior and lateral 9 mm in maximum diameter I suspect these represent small cysts or focally dilated ducts. There are adjacent very mildly dilated ducts present in the left breast. No definite morphologic abnormality or architectural distortion is seen bilaterally. Multiple small lymph nodes are present in both axillary regions. These all demonstrate somewhat reniform shape with fatty hilum. They may be reactive in nature. They are not significantly enlarged. IMPRESSION: BI-RADS Category 0 incomplete. MRI bilateral breasts. Unfortunately the patient became claustrophobic after the precontrast images and post gadolinium imaging is not obtained. Post contrast sequences are integral in the evaluation of detecting breast cancer by MRI and patient should return at her convenience for post-contrast imaging. Otherwise the precontrast images show two small cysts in the left breast as well as a few mildly dilated ducts. There are multiple nonenlarged axillary lymph nodes bilaterally which may be reactive in nature. No other significant findings on the precontrast images. BIRADS 0: BI-RADS/ACR category 0 mammogram, Incomplete: Need additional imaging evaluation. Electronically Signed by Leonel Boggs MD 01/26/2019 04:26 P
== END ==
LOC: M RAD 12:08
PROVIDERS: ATTEND Nurse Practitioner Women's Health
DX: Z12.31 Encounter for screening mammogram for malignant neoplasm of breast (principal)
CPT/HCPCS: 77047; A9576

== ENCOUNTER → 2019-04-16 | Outpatient (CLI) | payer MEDICARE, MEDICAID ==
[~2019-04-16] MED LIST changes: -METH54TA PO; +METH54TA5 PO; -PROHANCE 279.3MG/ML 15ML VIAL (A9576) As Ordered ONE; -PROHANCE 279.3MG/ML 5ML VIAL (A9576) As Ordered ONE
[2019-04-16 10:28] LABS: HEMOGLOBIN A1c 5.2 %
[2019-04-16 10:39] LABS: FREE T4 0.88 NG/DL (0.76-1.46); THYROID STIMULATING HORMONE 3.51 uIU/ML (0.358-3.740)
== END ==
LOC: M WUC 08:21
PROVIDERS: ATTEND Family Medicine
DX: E03.9 Hypothyroidism, unspecified (principal); E66.8 Other obesity; Z79.899 Other long term (current) drug therapy

== ENCOUNTER → 2019-04-16 | Outpatient (CLI) | payer MEDICARE, MEDICAID ==
[2019-04-16 10:26] LABS: BLOOD UREA NITROGEN 11 MG/DL (7-18); CREATININE FOR GFR 0.58 MG/DL (0.55-1.30); GLOMERULAR FILTRATION RATE > 60.0 (>60)
== END ==
LOC: M WUC 08:25
PROVIDERS: ATTEND Psychiatry & Neurology Psychiatry
DX: Z79.899 Other long term (current) drug therapy (principal)

== ENCOUNTER → 2019-07-14 | Outpatient (CLI) | payer MEDICARE, MEDICAID ==
[2019-07-14 12:56] LABS: ALBUMIN 3.9 GM/DL (3.2-5.2); ALT/SGPT 29 U/L (12-78); BILIRUBIN,TOTAL 0.4 MG/DL (0.2-1.0); BLOOD UREA NITROGEN 12 MG/DL (7-18); CALCIUM LEVEL 9.5 MG/DL (8.5-10.1); CARBON DIOXIDE LEVEL 29 MEQ/L (21-32); CHLORIDE LEVEL 105 MEQ/L (98-107); CREATININE FOR GFR 0.68 MG/DL (0.55-1.30); FREE T4 0.96 NG/DL (0.76-1.46); GLOMERULAR FILTRATION RATE > 60.0 (>60); GLUCOSE, FASTING 100 MG/DL (70-100); POTASSIUM SERUM 4.9 MEQ/L (3.5-5.1); SODIUM LEVEL 138 MEQ/L (136-145); TOTAL PROTEIN 7.2 GM/DL (6.4-8.2)
== END ==
LOC: M WUC 09:31
PROVIDERS: ATTEND Family Medicine
DX: E03.9 Hypothyroidism, unspecified (principal)

== ENCOUNTER → 2019-08-24 | Outpatient (CLI) | payer MEDICARE, MEDICAID ==
--- NOTE | 2019-08-24 09:52 | REPMRS ---
Patient History The patient states she has not had a clinical breast exam in over a year. Family history of breast cancer under age 50 in paternal grandmother. Digital Woman Screen Mammo: August 24, 2019 - Exam #: [id number] Bilateral CC and MLO view(s) were taken. Technologist: Kristin Billy, Technologist Prior study comparison: July 23, 2018, bilateral digital woman screen mammo performed at [facility]. FINDINGS: There are scattered fibroglandular densities. There is a stable 8 mm well-circumscribed nodule representing an intramammary lymph node in the upper outer quadrant on the left unchanged. There has been no change in the appearance of the mammogram from the prior studies. There is a mild amount of scattered fibroglandular density which is fairly symmetric. There is no interval development of dominant mass, architectural distortion, or grouped microcalcification suggestive of malignancy. 3-D tomosynthesis shows no additional findings. Assessment: BI-RADS/ACR category 2 mammogram. Benign Findings. Recommendation Routine screening mammogram of both breasts in 1 year (for women over age 40). This patient's Lifetime Breast Cancer Risk is estimated at 24.4 %. This mammogram was interpreted with the aid of an FDA-approved computer-aided dectection system. Electronically Signed By: Raji Carter MD 08/24/19 [id number]
== END ==
LOC: M WHC 07:47
PROVIDERS: ATTEND Nurse Practitioner Women's Health
DX: Z12.31 Encounter for screening mammogram for malignant neoplasm of breast (principal); R92.2 Inconclusive mammogram; I80.3 Phlebitis and thrombophlebitis of lower extremities, unspecified

== ENCOUNTER → 2019-09-24 | Outpatient (CLI) | payer MEDICARE ==
[2019-09-24 09:36] LABS: HEMATOCRIT 40.6 % (36.0-47.0); HEMOGLOBIN 13.3 g/dl (12.0-15.5); MEAN CORPUSCULAR HEMOGLOBIN 29.7 pg (27.0-33.0); MEAN CORPUSCULAR HGB CONC 32.8 g/dl (32.0-36.5); MEAN CORPUSCULAR VOLUME 90.6 fl (80.0-96.0); PLATELET COUNT, AUTOMATED 426 10^3/uL (150-450); RED BLOOD COUNT 4.48 10^6/uL (4.00-5.40); WHITE BLOOD COUNT 12.9 10^3/uL (4.0-10.0)
[2019-09-24 10:08] LABS: ALT/SGPT 28 U/L (12-78); BILIRUBIN,TOTAL 0.5 MG/DL (0.2-1.0); BLOOD UREA NITROGEN 12 MG/DL (7-18); CALCIUM LEVEL 9.4 MG/DL (8.5-10.1); CARBON DIOXIDE LEVEL 28 MEQ/L (21-32); CHLORIDE LEVEL 105 MEQ/L (98-107); CHOLESTEROL LEVEL 209 MG/DL (<200); CREATININE FOR GFR 0.69 MG/DL (0.55-1.30); GLOMERULAR FILTRATION RATE > 60.0 (>60); GLUCOSE, FASTING 101 MG/DL (70-100); HDL CHOLESTEROL 43 MG/DL (>40); LDL CHOLESTEROL 121 MG/DL (<100); NON-HDL-C 166 MG/DL; POTASSIUM SERUM 4.4 MEQ/L (3.5-5.1); SODIUM LEVEL 138 MEQ/L (136-145); TOTAL PROTEIN 7.7 GM/DL (6.4-8.2); TRIGLYCERIDES LEVEL 225 MG/DL (<150)
== END ==
LOC: M WUC 08:15
PROVIDERS: ATTEND Family Medicine
DX: Z00.00 Encounter for general adult medical examination without abnormal findings (principal); E07.9 Disorder of thyroid, unspecified; E78.00 Pure hypercholesterolemia, unspecified

== ENCOUNTER → 2019-10-04 | Outpatient (CLI) | payer MEDICARE, MEDICAID ==
[~2019-10-04] MED LIST changes: +B COCAP4 PO; +OMEG10002 PO
--- NOTE | 2019-10-04 19:19 | ECGEPIP ---
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
== END ==
LOC: M EKG 06:46
PROVIDERS: ATTEND Internal Medicine
DX: G47.30 Sleep apnea, unspecified (principal)

== ENCOUNTER → 2020-04-19 | Outpatient (CLI) | payer MEDICARE, MEDICAID ==
[~2020-04-19] MED LIST changes: +CALC600T17 PO; -CALC600T6 PO; +KETO2SHA8; -KETO2SHA9
[2020-04-19 11:59] LABS: ALT/SGPT 24 U/L (12-78); BILIRUBIN,TOTAL 0.4 MG/DL (0.2-1.0); BLOOD UREA NITROGEN 12 MG/DL (7-18); CALCIUM LEVEL 9.2 MG/DL (8.5-10.1); CARBON DIOXIDE LEVEL 26 MEQ/L (21-32); CHLORIDE LEVEL 106 MEQ/L (98-107); CREATININE FOR GFR 0.64 MG/DL (0.55-1.30); FREE T4 0.99 NG/DL (0.76-1.46); GLOMERULAR FILTRATION RATE > 60.0 (>60); GLUCOSE, FASTING 91 MG/DL (70-100); POTASSIUM SERUM 4.4 MEQ/L (3.5-5.1); SODIUM LEVEL 136 MEQ/L (136-145); THYROID STIMULATING HORMONE 0.601 uIU/ML (0.358-3.740); TOTAL PROTEIN 7.6 GM/DL (6.4-8.2)
[2020-04-20 16:08] LABS: Lyme Disease IgG/IgM Antibodie <0.91 ISR (0.00-0.90); Lyme Disease IgM Ab Quantitati <0.80 index (0.00-0.79)
== END ==
LOC: M WUC 08:41
PROVIDERS: ATTEND Family Medicine
DX: S00.86XA Insect bite (nonvenomous) of other part of head, initial encounter (principal); E03.9 Hypothyroidism, unspecified; F31.9 Bipolar disorder, unspecified; Z79.899 Other long term (current) drug therapy; Y93.9 Activity, unspecified

== ENCOUNTER → 2020-06-20 | Outpatient (CLI) | payer MEDICARE, MEDICAID ==
[~2020-06-20] MED LIST changes: +PROHANCE 279.3MG/ML 15ML VIAL As Ordered ONE; +PROHANCE 279.3MG/ML 5ML VIAL As Ordered ONE
--- NOTE | 2020-06-20 16:07 | REP ---
INDICATION: BREAST CANCER SCREENING, HIGH RISK PATIENT. COMPARISON: Comparison mammography August 24 09/30/2019. Comparison MRI study is from February 23, 2019. TECHNIQUE: Three Marcia MRI imaging was performed with a dedicated breast coil. Axial, coronal, and sagittal T1 and T2 weighted scans were obtained with and without fat saturation in the usual fashion. The study includes dynamically acquired post gadolinium-enhanced imaging with image subtraction. Maximum intensity projection and multi planar reformation imaging is included as well. This study is interpreted with the aid of Fanchimp, an FDA approved computer aided detection (CAD) software program, on a dedicated breast MRI workstation. The gadolinium enhancement dose is 20 mL of intravenous ProHance. FINDINGS: There is a mild pattern is scattered fibroglandular tissue. There is minimal background parenchymal enhancement. There are numerous axillary lymph nodes which are present bilaterally and which are stable from the prior breast MRI study. No definite adenopathy. High-resolution pre and post-contrast T1 and T2 weighted scans show no evidence of significant breast cystic change. There is no evidence of internal mammary adenopathy. Dynamically acquired sequential postcontrast images show no suspicious area of enhancement and/or washout in either breast to suggest malignancy. Tiny subcentimeter foci of minimal enhancement are seen in the left breast unchanged. IMPRESSION: Stable BI-RADS category 2 benign findings. Patients whose a lifetime breast cancer risk estimate is greater than 20% merit annual screening breast MRI scanning in addition to annual screening mammography. <Electronically signed by Raji Carter > 06/20/20 [id number]
== END ==
LOC: M RAD 07:13
PROVIDERS: ATTEND Nurse Practitioner Women's Health
DX: Z80.3 Family history of malignant neoplasm of breast (principal); R92.2 Inconclusive mammogram
CPT/HCPCS: A9576; C8908

== ENCOUNTER → 2021-03-15 | Outpatient (REF) | payer MEDICARE, MEDICAID ==
[~2021-03-15] MED LIST changes: -PROHANCE 279.3MG/ML 15ML VIAL As Ordered ONE; -PROHANCE 279.3MG/ML 5ML VIAL As Ordered ONE
== END ==
LOC: M SFHCWAGY 14:26
PROVIDERS: ATTEND Nurse Practitioner Women's Health
DX: Z12.4 Encounter for screening for malignant neoplasm of cervix (principal)

== ENCOUNTER → 2021-03-15 | Outpatient (CLI) | payer MEDICARE, MEDICAID ==
--- NOTE | 2021-03-15 09:07 | REPMRS ---
Patient History The patient states she had a clinical breast exam in March 2021. Family history of breast cancer under age 50 in paternal grandmother. Tomosynthesis is performed. Volpara breast density is b. Patient states no breast complaints today. Patient has signed MRS History Sheet. Digital Woman Screen Mammo: March 15, 2021 - Exam #: [id number] Bilateral CC and MLO view(s) were taken. Technologist: Maki Wong, Technologist Prior study comparison: August 24, 2019, bilateral digital woman screen mammo performed at [facility]. July 23, 2018, bilateral digital woman screen mammo performed at [facility]. FINDINGS: There are scattered fibroglandular densities. There has been no change in the appearance of the mammogram from the prior studies. There is a mild amount of residual fibroglandular tissue which is fairly symmetric. There is no interval development of dominant mass, architectural distortion, or clustered microcalcification suggestive of malignancy. Assessment: BI-RADS/ACR category 1 mammogram. Negative Mammogram. Recommendation Routine screening mammogram in 1 year (for women over age 40). This mammogram was interpreted with the aid of an FDA-approved computer-aided dectection system. The Lifetime Breast Cancer Risk is estimated at 24.2%. Yearly supplemental screening MRI of the breasts is recommended for patients with an elevated lifetime risk of breast cancer of 20% or greater, in addition to annual screening mammography, staggered every 6 months. Electronically Signed By: Leonel Boggs MD 03/15/21 0907
== END ==
LOC: M WHC 07:19
PROVIDERS: ATTEND Nurse Practitioner Women's Health
DX: Z12.31 Encounter for screening mammogram for malignant neoplasm of breast (principal); Z80.3 Family history of malignant neoplasm of breast; Z12.4 Encounter for screening for malignant neoplasm of cervix
CPT/HCPCS: 77063; 77067; 87624; G0123; G0463

== ENCOUNTER → 2021-07-24 | Outpatient (CLI) | payer MEDICARE, MEDICAID ==
[~2021-07-24] MED LIST changes: -FLUV100T2 PO; +FLUV100T25 PO; +PROHANCE 279.3MG/ML 15ML VIAL As Ordered ONE; +PROHANCE 279.3MG/ML 5ML VIAL As Ordered ONE
== END ==
LOC: M RAD 11:55
PROVIDERS: ATTEND Nurse Practitioner Women's Health
DX: R92.2 Inconclusive mammogram (principal); Z53.8 Procedure and treatment not carried out for other reasons

== ENCOUNTER → 2022-08-21 | Outpatient (CLI) | payer MEDICARE, MEDICAID ==
[~2022-08-21] MED LIST changes: -PROHANCE 279.3MG/ML 15ML VIAL As Ordered ONE; -PROHANCE 279.3MG/ML 5ML VIAL As Ordered ONE
[2022-08-21 11:10] LABS: PROLACTIN 12.23 NG/ML; THYROID STIMULATING HORMONE 4.916 uIU/ML (0.55-4.78)
[2022-08-21 11:11] LABS: FREE T4 1.03 NG/DL (0.89-1.76)
[2022-08-25 14:07] LABS: 17 HYDROXY PROGESTERONE 39 ng/dL (.); TESTOSTERONE FREE (DIRECT) 3.5 pg/mL (0.0-4.2)
== END ==
LOC: M PLALAB 08:14
PROVIDERS: ATTEND Nurse Practitioner Family
DX: N92.6 Irregular menstruation, unspecified (principal)

== ENCOUNTER → 2022-08-21 | Outpatient (REF) | payer MEDICARE, MEDICAID | LOC: M PLALAB 11:22 | PROVIDERS: ATTEND Nurse Practitioner Family | DX: Z12.4 Encounter for screening for malignant neoplasm of cervix (principal) | CPT/HCPCS: 87624; G0123 ==

== ENCOUNTER → 2023-05-20 | Outpatient (CLI) | payer MEDICARE, MEDICAID | LOC: M WHC 08:11 | PROVIDERS: ATTEND Nurse Practitioner Family | DX: Z12.31 Encounter for screening mammogram for malignant neoplasm of breast (principal) ==

== ENCOUNTER → 2023-10-22 | Outpatient (CLI) | payer MEDICARE, MEDICAID ==
[2023-10-22 12:03] LABS: BASO # 0.1 10^3/uL (0.0-0.2); BASO % 0.6 % (0.0-1.0); EOS # 0.7 10^3/uL (0.0-0.5); EOS % 4.1 % (0.0-3.0); HEMATOCRIT 40.8 % (36.0-47.0); HEMOGLOBIN 13.3 g/dl (12.0-15.5); LYMPH # 4.6 10^3/uL (1.5-5.0); LYMPH % 28.6 % (24.0-44.0); MEAN CORPUSCULAR HEMOGLOBIN 29.4 pg (27.0-33.0); MEAN CORPUSCULAR HGB CONC 32.6 g/dl (32.0-36.5); MEAN CORPUSCULAR VOLUME 90.1 fl (80.0-96.0); MONO # 1.1 10^3/uL (0.0-0.8); MONO % 6.5 % (2.0-8.0); NEUTROPHILS # 9.6 10^3/uL (1.5-8.5); NEUTROPHILS % 59.3 % (36.0-66.0); PLATELET COUNT, AUTOMATED 488 10^3/uL (150-450); RED BLOOD COUNT 4.53 10^6/uL (4.00-5.40); WHITE BLOOD COUNT 16.2 10^3/uL (4.0-10.0)
[2023-10-22 12:34] LABS: ALBUMIN 4.2 G/DL (3.2-5.2); ALKALINE PHOSPHATASE 65 U/L (46-116); ALT/SGPT 24 U/L (7.0-40); AST/SGOT 14 U/L (<34); BILIRUBIN,TOTAL 0.4 MG/DL (0.3-1.2); BLOOD UREA NITROGEN 13 MG/DL (9-23); CARBON DIOXIDE LEVEL 27 MMOL/L (20-31); CHLORIDE LEVEL 101 MMOL/L (98-107); CHOLESTEROL LEVEL 226 MG/DL (<200); CHOLESTEROL RISK RATIO 4.86 (<5); CREATININE FOR GFR 0.64 MG/DL (0.55-1.30); GLOMERULAR FILTRATION RATE > 60.0 (>58); GLUCOSE, FASTING 90 MG/DL (60-100); HDL CHOLESTEROL 46.5 MG/DL (>40); LDL CHOLESTEROL 127.9 MG/DL (<100); NON-HDL-C 179.5 MG/DL; POTASSIUM SERUM 4.4 MMOL/L (3.5-5.1); SODIUM LEVEL 136 MMOL/L (136-145); THYROID STIMULATING HORMONE 4.784 uIU/ML (0.55-4.78); TOTAL PROTEIN 7.8 G/DL (5.7-8.2); TRIGLYCERIDES LEVEL 258 MG/DL (<150)
[2023-10-22 12:36] LABS: TOTAL 25(OH) VITAMIN D 31.4 NG/ML (20.0-100.0)
== END ==
LOC: M WUC 10:28
PROVIDERS: ATTEND Family Medicine
DX: Z00.00 Encounter for general adult medical examination without abnormal findings (principal); E78.00 Pure hypercholesterolemia, unspecified

== ENCOUNTER → 2023-10-28 | Outpatient (CLI) | payer MEDICARE, MEDICAID | LOC: M ADAMS 11:06 | PROVIDERS: ATTEND Family Medicine | DX: R05.9 Cough, unspecified (principal) ==

== ENCOUNTER → 2024-05-27 | Outpatient (REF) | payer MEDICARE, MEDICAID ==
[2024-05-27 19:23] LABS: FREE T4 1.3 NG/DL (0.89-1.76); THYROID STIMULATING HORMONE 3.196 uIU/ML (0.55-4.78)
== END ==
LOC: M LAB REF 18:36
PROVIDERS: ATTEND Family Medicine
DX: E03.9 Hypothyroidism, unspecified (principal)

== ENCOUNTER → 2025-04-28 | Outpatient (CLI) | payer MEDICARE, MEDICAID ==
[~2025-04-28] MED LIST changes: +FLUV100T20 PO; -FLUV100T25 PO; +KETO120S5; -KETO2SHA8; +METH54TA13 PO; -METH54TA5 PO
== END ==
LOC: M WHC 11:04
PROVIDERS: ATTEND Family Medicine
DX: Z12.31 Encounter for screening mammogram for malignant neoplasm of breast (principal)

== ENCOUNTER → 2025-06-17 | Outpatient (CLI) | payer MEDICARE, MEDICAID ==
[2025-06-17 18:11] LABS: PLATELET COUNT, AUTOMATED 470 10^3/uL (150-450)
[2025-06-17 18:32] LABS: ALT/SGPT 28 U/L (7.0-40); AST/SGOT 21 U/L (<34); CALCIUM LEVEL 10.8 MG/DL (8.5-10.1); CARBON DIOXIDE LEVEL 25 MMOL/L (20-31); CHLORIDE LEVEL 100 MMOL/L (98-107); CHOLESTEROL LEVEL 268 MG/DL (<200); CHOLESTEROL RISK RATIO 4.94 (<5); CREATININE FOR GFR 0.73 MG/DL (0.55-1.30); GLOMERULAR FILTRATION RATE > 90.0 (>58); LDL CHOLESTEROL 158.2 MG/DL (<100); NON-HDL-C 213.8 MG/DL; POTASSIUM SERUM 4.6 MMOL/L (3.5-5.1); SODIUM LEVEL 137 MMOL/L (136-145); TRIGLYCERIDES LEVEL 278 MG/DL (<150)
[2025-06-17 18:36] LABS: FREE T4 1.04 NG/DL (0.89-1.76)
[2025-06-17 19:02] LABS: ATYPICAL LYMPH 11 % (0-5); EOSINOPHILS 3 % (0-3); LYMPHOCYTES 26 % (16-44); MONOCYTES 4 % (0-5); NEUTROPHILS 56 % (28-66); PLATELET ESTIMATE NORMAL (NORMAL)
== END ==
LOC: M LAB 17:20
PROVIDERS: ATTEND Family Medicine
DX: Z00.00 Encounter for general adult medical examination without abnormal findings (principal); E03.9 Hypothyroidism, unspecified